=== PATIENT | male | born 1950 | race Caucasian/White ===

== ENCOUNTER 2017-12-15 23:51 | Inpatient (IN) | payer BC ==
[~2017-12-15] VITALS: Ht 185.4 cm; Wt 76.8 kg
[2017-12-16 00:40] LABS: BASOPHIL % 0.5 % (0-2); PLATELET COUNT 157 x10^3mcL (130-400)
[2017-12-16 00:42] LABS: RED CELL DISTRIBUTION WIDTH 14.6 % (11.5-14.5)
[2017-12-16 00:43] LABS: CALCIUM 8.9 mg/dL (8.5-10.1); CARBON DIOXIDE 31.3 mmol/L (21-32); CHLORIDE SERUM 107 mmol/L (98-107); CREATININE SERUM 0.8 mg/dL (0.7-1.3); GFR1 > 60 mL/min; GLUCOSE SERUM 106 mg/dL (74-106); SODIUM SERUM 143 mmol/L (136-145)
[2017-12-16 00:50] LABS: ALBUMIN 3.7 g/dL (3.4-5.0); ALKALINE PHOSPHATASE 95 U/L (46-116); ALT/SGPT 26 U/L (16-63); AST/SGOT 17 U/L (15-37); BILIRUBIN TOTAL 0.4 mg/dL (0.20-1.00); TOTAL PROTEIN, SERUM 7.3 g/dL (6.4-8.2)
[2017-12-16 01:37] LABS: microscopic required? NO
[2017-12-16 02:15] LABS: urine erythrocyte NEGATIVE (NEGATIVE)
[2017-12-16] MEDS ORDERED: NOR10 PO (02:37)
[2017-12-16] MEDS ORDERED: GOOD SENSE OMEP20 MG PO (02:37)
[2017-12-16 03:24] VITALS: BP 137/77
[2017-12-16 04:42] LABS: AMPHETAMINE QUAL UR NONE DETECTED (See below)
[2017-12-16 04:50] LABS: T3 TOTAL 1.26 ng/mL
[2017-12-16 04:51] LABS: MAGNESIUM 2.4 mg/dL (1.8-2.4); PHOSPHOROUS 4.2 mg/dL (2.5-4.9)
[2017-12-16 05:01] LABS: FREE T4 1.08 ng/dL (0.76-1.46); T4(THYROXINE) 8.9 ug/dL (4.7-13.3)
[2017-12-16 05:52] VITALS: BP 126/73
[2017-12-16 05:55] LABS: BASOPHIL % 0.5 % (0-2); PLATELET COUNT 149 x10^3mcL (130-400); RED CELL DISTRIBUTION WIDTH 14.4 % (11.5-14.5)
[2017-12-16 06:33] LABS: CALCIUM 8.5 mg/dL (8.5-10.1); CARBON DIOXIDE 28.5 mmol/L (21-32); CHLORIDE SERUM 108 mmol/L (98-107); CREATININE SERUM 0.7 mg/dL (0.7-1.3); GFR1 > 60 mL/min; GLUCOSE SERUM 110 mg/dL (74-106); MAGNESIUM 2.2 mg/dL (1.8-2.4); PHOSPHOROUS 3.4 mg/dL (2.5-4.9); POTASSIUM SERUM 3.3 mmol/L (3.5-5.1); SODIUM SERUM 143 mmol/L (136-145)
[2017-12-16 08:13] VITALS: BP 135/77
[2017-12-16] MEDS ORDERED: MECLIZINE HCL12.5 MG PO (12:08)
[2017-12-16 12:37] VITALS: BP 121/69
[2017-12-16 12:50] VITALS: BP 121/69
== END 2017-12-16 13:57 | disposition home or self-care (01) | DRG 149 ==
LOC: ED 23:51 → DU 12-16 02:01
PROVIDERS: Emergency Medicine; Family Medicine
DX: H81.10 Benign paroxysmal vertigo, unspecified ear (principal); G90.8 Other disorders of autonomic nervous system; I10 Essential (primary) hypertension; F17.210 Nicotine dependence, cigarettes, uncomplicated; E87.6 Hypokalemia
CPT/HCPCS: 84439; J7030; J8597; Q0092